=== PATIENT | female | born 1975 | race Caucasian/White ===

== ENCOUNTER 2020-12-21 14:38 | Outpatient (CLI) | payer BC, OTHER, SELFPAY ==
--- NOTE | ~2020-12-21 | US_ITS ---
EXAMINATION: US pelvic complete w TV DATE: 12/21/2020 15:20 INDICATION: Dysfunctional uterine bleeding. TECHNIQUE: Multiple transabdominal and transvaginal sonographic images of the pelvis were obtained. COMPARISON: CT abdomen and pelvis 08/28/11 FINDINGS: TRANSABDOMINAL ULTRASOUND: The uterus measures 8.1 x 4.5 x 5.9 cm. There is no free fluid in the pelvis. TRANSVAGINAL ULTRASOUND: The endometrial complex measures 22 mm in thickness. There is a 2.1 cm hypoechoic mass in the endomet rial complex. There is a 7 mm hypoechoic intramural fibroid. The right ovary measures 1.8 x 1.1 x 1.1 cm. The left ovary measures 2.9 x 1.4 x 1.4 cm. IMPRESSION: 1. Thickened endometrial complex. A 2.1 cm mass in the endometrial complex may be a subserosal fibroi d or polyp. 2. Small intramural fibroid. Reviewed, dictated and finalized at location A. IMPRESSION: 1. Thickened endometrial complex. A 2.1 cm mass in the endometrial complex may be a subserosal fibroid or polyp. 2. Small intramural fibroid.
[2020-12-21 14:55] LABS: Basophils Absolute Auto 0.05 K/mm3 (0.00-0.10); Basophils Percent Auto 0.4 % (0.0-1.0); Eosinophils Absolute Auto 0.06 K/mm3 (0.02-0.50); Eosinophils Percent Auto 0.5 % (1.0-6.0); Hematocrit 45.8 % (35.0-49.0); Hemoglobin 14.8 g/dL (12.0-15.0); Immature Granulocyte Absolute 0.05 K/mm3 (0.00-0.00); Immature Granulocyte Percent A 0.4 % (0.0-0.0); Lymphocytes Absolute Auto 1.45 K/mm3 (1.10-4.50); Lymphocytes Percent Auto 12.9 % (18.0-42.0); Mean Corpuscular HGB Conc 32.3 g/dL (32.0-36.0); Mean Corpuscular Volume 86.6 fL (78.0-102.0); Mean Platelet Volume 10.3 fl (9.2-11.8); Monocytes Absolute Auto 0.49 K/mm3 (0.10-0.90); Monocytes Percent Auto 4.3 % (2.0-11.0); Neutrophils Absolute Auto 9.2 K/mm3 (1.7-7.2); Neutrophils Percent Auto 81.5 % (50.0-70.0); Platelet Count Result 276 K/mm3 (150-420); Red Blood Count 5.29 M/mm3 (4.20-5.40); Red Cell Distribution Width 12.9 % (11.6-14.4); White Blood Count 11.3 K/mm3 (4.8-10.8)
[2020-12-21 15:34] LABS: Alanine Aminotransferase 23 U/L (14-59); Albumin Level 4.2 g/dL (3.4-5.0); Alkaline Phosphatase 102 U/L (46-116); Anion Gap 10 mmol/L (8-16); Aspartate Amino Transferase 12 U/L (15-37); Bilirubin,Total 0.6 mg/dL (0.00-1.00); Blood Urea Nitrogen 11 mg/dL (7-18); Calcium 9.2 mg/dL (8.5-10.1); Carbon Dioxide 26 mmol/L (21-32); Chloride 104 mmol/L (98-108); Estimated Glomerular Filt Rate > 60; Free T4 Free Thyroxine 1.09 ng/dL (0.76-1.46); Glucose 99 mg/dL (70-99); Osmolality Calculated 289 mOsm/kg (285-295); Potassium 4.3 mmol/L (3.5-5.1); Sodium 140 mmol/L (136-145); Thyroid Stimulating Hormone 1.88 uIU/mL (0.36-3.74); Total Protein 7.2 g/dL (6.4-8.2)
[2020-12-24 22:07] LABS: FSH 13.6 mIU/mL (***); Progesterone 0.3 ng/mL (***)
[2020-12-25 09:05] LABS: Testosterone Total 19 ng/dL (2-45)
[2020-12-30 22:01] LABS: Estrogen 234.9 pg/mL
== END 2020-12-21 14:39 | disposition home or self-care (01) ==
PROVIDERS: PCP Internal Medicine; Visit Provider Nurse Practitioner Family
DX: N93.8 Other specified abnormal uterine and vaginal bleeding (principal); R93.89 Abnormal findings on diagnostic imaging of other specified body structures; D25.1 Intramural leiomyoma of uterus
CPT/HCPCS: 36415; 76830; 76856; 80053; 82672; 83001; 83002; 84144; 84403; 84439; 84443; 85025

== ENCOUNTER 2021-01-10 07:57 | Outpatient (CLI) | payer BC, OTHER, SELFPAY ==
[2021-01-10 09:00] LABS: Basophils Absolute Auto 0.1 K/mm3 (0.0-0.1); Basophils Percent Auto 0.8 % (0.2-1.2); Eosinophils Absolute Auto 0.2 K/mm3 (0-0.3); Eosinophils Percent Auto 2.8 % (0-4.4); Hematocrit 46.9 % (37.0-47.0); Hemoglobin 15.2 g/dL (12.0-15.0); Immature Granulocyte Absolute 0.02 K/mm3 (0.00-0.031); Immature Granulocyte Percent A 0.3 % (0-0.5); Lymphocytes Absolute Auto 1.99 K/mm3 (0.9-3.2); Lymphocytes Percent Auto 32.8 % (18.3-44.2); Mean Corpuscular HGB Conc 32.4 g/dl (32-36); Mean Corpuscular Hemoglobin 28.5 pg (26-34); Mean Corpuscular Volume 87.8 fl (80-100); Mean Platelet Volume 10.4 fl (7.4-10.4); Monocytes Absolute Auto 0.5 K/mm3 (0.1-0.6); Monocytes Percent Auto 7.4 % (2.6-8.5); Neutrophils Absolute Auto 3.4 K/mm3 (1.3-6.7); Neutrophils Percent Auto 55.9 % (45.5-73.1); Platelet Count Result 287 k/mm3 (150-375); Red Blood Count 5.34 M/mm3 (4.2-5.4); White Blood Count 6.1 K/mm3 (4.5-10.0)
== END 2021-01-10 07:58 | disposition home or self-care (01) ==
LOC: ANHSURGERY 08:01
PROVIDERS: PCP Internal Medicine; Visit Provider Student in an Organized Health Care Education/Training Program
DX: Z01.812 Encounter for preprocedural laboratory examination (principal); N94.89 Other specified conditions associated with female genital organs and menstrual cycle
CPT/HCPCS: 36415; 85025; 86850; 86900; 86901

== ENCOUNTER → 2021-01-16 03:05 | Outpatient (CLI) | payer BC, OTHER, SELFPAY ==
[2021-01-16 18:14] LABS: SARS-CoV-2 RNA PCR Negative
== END ==
PROVIDERS: PCP Internal Medicine; Visit Provider Student in an Organized Health Care Education/Training Program
DX: Z01.812 Encounter for preprocedural laboratory examination (principal); Z20.822 Contact with and (suspected) exposure to COVID-19
CPT/HCPCS: C9803; U0003; U0005

== ENCOUNTER 2021-01-19 13:12 | Inpatient (IN) | payer BC, OTHER, SELFPAY ==
[2021-01-10 08:07] VITALS: BP 136/80; PULSE 80; RESP 18; TEMP 37.1; O2SAT 98; BMI 34.3
--- NOTE | 2021-01-18 17:54 | PM.IMHP ---
H&P: HPI History of Present Illness Date/Time: 01/18/21 17:54 Patient is a 45yo who presented to gynecology office in 12/2020 for evaluation of abnormal uterine bleeding and endometrial mass. Patient had a pelvic US on 12/21/20 that showed uterus measuring 8.1 x 4.5 x 5.9 cm and a 2.1 cm hypoechoic mass in the endometrial complex. Patient is likely perimenopausal and reported having a menses in 07/2019 and no further menses until 12/18/2020 when she experienced an episode of extremely heavy bleeding requiring her to leave work. Lengthy discussion had with patient regarding further evaluation and possible management options. Patient was initially offered a hysteroscopy/D&C and hysteroscopic resection of mass (probably a fibroid or polyp), however, patient declined. She is extremely worried about recurrence of episode of heavy bleeding and desires definitive management with a hysterectomy. She reports feeling well today without complaints. Chief Complaint: abnormal uterine bleeding endometrial mass Review of Systems Review of Systems: All systems reviewed & are unremarkable except as noted in HPI and below Constitutional: Constitutional: Reports as per HPI, Reports no additional constitutional complaints, Denies chills, Denies fever(s), Denies headache(s) and Denies night sweats Eyes: Eyes: Reports as per HPI and Reports no additional eye complaints ENT: Reports system reviewed and no additional complaints, except as documented, Reports as per HPI, Reports Normal hearing present and Denies headache(s) Cardiovascular: Cardiovascular: Reports as per HPI, Reports no additional cardiovascular complaints, Denies chest pain and Denies dyspnea Respiratory: Respiratory: Reports as per HPI, Reports no additional respiratory complaints, Denies cough and Denies dyspnea Gastrointestinal: Gastrointestinal: Reports as per HPI, Reports no additional gastrointestinal complaints, Denies abdominal pain, Denies change in bowel habits, Denies change in stool character, Denies nausea and Denies vomiting Genitourinary: Genitourinary: Reports no additional female genitourinary complaints, Reports as per HPI, Reports abnormal vaginal bleeding, Denies genital lesions, Denies hot flashes, Denies dyspareunia, Denies pelvic pain, Denies sexual dysfunction, Denies urinary incontinence, Denies vaginal discharge, Denies vaginal dryness and Denies vaginal odor Musculoskeletal: Musculoskeletal: Reports no additional musculoskeletal complaints and Reports as per HPI Integumentary/Breasts: Skin/Breast: Reports system reviewed and no additional complaints, except as docu, Reports as per HPI, Denies breast pain and Denies nipple discharge Neurologic: Reports system reviewed and no additional complaints, except as documented, Reports as per HPI, Reports Normal hearing present and Denies headache(s) Psychiatric: Psychiatric: Reports no additional psychiatric complaints, Reports as per HPI, Denies anxiety and Denies depression Endocrine: Endocrine: Reports no additional endocrine complaints and Reports as per HPI Hematologic/Lymphatic: Hematologic/Lymphatic: Reports no additional hematologic/lymphatic complaints and Reports as per HPI Allergic/Immunologic: Allergic/Immunologic: Reports no additional allergic/immunologic complaints and Reports as per HPI PMFSH Surgical History Surgical History Previous section x 2 Family History Family History Grandparent Uterine cancer Hypertension Social History Social History Smoking status: Never smoker Second hand tobacco smoke exposure: No Alcohol intake: never Substance use: never Substance use type: does not use Gender identity (if verbalized by the patient): Female Spiritual care concerns: No Agree to blood products: Yes Meds Home Medications and
[2021-01-19] VITALS (15 sets, daily range): BP systolic 101–148; BP diastolic 60–92; PULSE 70–110; RESP 11–20; TEMP 36.1–37.1; O2SAT 94–100
--- NOTE | 2021-01-19 08:59 | WPDANESEPPF ---
Anes - Initial Pre Proc Eval Procedure: Operation Date: 01/19/21 09:30 Proposed Procedures p Total Abdominal Hysterectomy With Bilateral Salpingectomy - Malka Alaniz MD Date/Time: 01/19/21 08:59 Surgeon: Malka Alaniz MD Pre Op Diagnosis: abnormal uterine bleeding Patient Data Age: 45 Gender: F Height: 5 ft 4 in Weight: 90.7 kg Last Vital Signs Temp 98.7 F 01/10/21 08:07 Pulse 80 01/10/21 08:07 Resp 18 01/10/21 08:07 BP 136/80 01/10/21 08:07 Pulse Ox 98 01/10/21 08:07 Allergies Allergy/AdvReac Type Severity Reaction Status Date / Time No Known Allergies Allergy Verified 01/19/21 08:50 Home Medications Medication Instructions Recorded Confirmed Type multivitamin 1 tablet PO DAILY 12/27/20 01/19/21 History Patient hx anesthesia problems: none Family hx anesthesia problems: none PMFSH Past Medical History Medical History (Updated 01/19/21 @ 08:55 by Maverick Montes MD) Endometrial mass Surgical History Surgical History Previous section x 2 Family History Family History Grandparent Uterine cancer Hypertension Social History Social History Smoking status: Never smoker Second hand tobacco smoke exposure: No Alcohol intake: never Substance use: never Substance use type: does not use Living arrangements: with family Gender identity (if verbalized by the patient): Female Spiritual care concerns: No Agree to blood products: Yes Anes - Eval Final PreProcedure Day of Procedure 01/19/21 08:59 Patient weight: obese Heart: regular rate and rhythm Lungs: clear to auscultation Airway: Mallampati scale class III Neurological: alert and oriented Last oral intake: >/= 8 hours ASA classification: III Emergent: no Anesthetic plan: proceed Anesthesia type and monitoring: general ETT and standard monitoring Informed Consent: The patient's anesthetic plan and its attendant risks and benefits were discussed with the patient/family/POA. Questions were solicited and answers provided to the satisfaction of the patient/family/POA.
[2021-01-19] MEDS: LACTATED RINGERS 1,000 ML 30 ML IV CONT ×2 (09:00→12:11)
--- NOTE | 2021-01-19 09:02 | WPDHPUPDATE1 ---
History and Physical Update Update Date/Time: 01/19/21 09:02 History and Physical has been reviewed, including an updated exam of the patient. There are NO changes in the patient's condition. Risks, benefits, and alternatives have been discussed and questions answered. Patient agrees to proceed with procedure.
--- NOTE | 2021-01-19 09:04 | PM.PROC ---
Procedure Note - Detailed Date of procedure: 01/19/21 Pre-op diagnosis: abnormal uterine bleeding Endometrial mass Post-op diagnosis: same Procedure performed: Total abdominal hysterectomy Bilateral salpingectomy Cystoscopy Description of procedure: The patient was taken to the operating room where she self transferred to the operating room table. She was placed in the dorsal supine position. General anesthesia was administered and found to be adequate. The patient was prepped and draped in the usual sterile fashion. A Pfannenstiel skin incision was made with a scalpel and carried through to the underlying layer of fascia with the Bovie. The fascia was incised in the midline and the incision was extended laterally with the use of forceps and Bearden scissors. The inferior aspect of the fascial incision was grasped with Paul clamps, elevated, and the underlying rectus muscles were dissected off with Bearden scissors. Attention was turned to the superior aspect of the fascial incision, which in a similar manner was grasped with Apul clamps, elevated, and the underlying rectus muscles also dissected off with Bearden scissors. The rectus muscles were gently retracted and the peritoneum was identified, grasped with Maribel clamps, and entered carefully with Metzenbaum scissors. The bowel was noted just below incision. Underlying structures were palpated with fingers and noted to be free of any adhesions. The peritoneal incision was extended inferiorly to enhance visualization. Significant scar tissue, however, was encountered and dissection was performed using both Bearden and Metzenbaum scissors. The peritoneal cavity was gently stretched, however, with little give. To enhance visualization, the right rectus muscle was transected approx. 0.5cm. Two lap pads were placed laterally beneath the rectus muscle bellies and a self-retaining [place] retractor was placed. Three additional lap pads were placed in the abdomen to displace the bowel cephalad and laterally. A bladder blade was attached to the retractor. The bladder appeared to be densely adherent to the anterior surface of the uterus. The uterus was grasped and guided towards the incision. Pean clamps were placed near the left and right uterine cornua for traction and elevation. The right round ligament was identified, grasped with Nesha clamp, and suture ligated. The round ligament was transected with Bovie. The anterior leaf of the broad ligament was carefully dissected towards the midline to begin creation of bladder flap. Several dense adhesions were grasped and transected carefully with Metzenbaum scissors. The right fallopian tube was identified and grasped with a Sutherland clamp. The LigaSure device was used to transect the mesosalpinx beneath the tube to the level of the cornua. An incision in the posterior leaf of the broad ligament on the right side was created with the Bovie. The LigaSure device was then used to transect the utero-ovarian ligament on the right side. Dissection of the posterior leaf of the broad ligament was performed. Profuse bleeding of the uterine artery on the right side was noted. This bleeding was controlled with the LigaSure device. During this time, with manipulation of the uterus and fallopian tube, the tube detached and was handed off the field to be sent to pathology. Attention was then turned to the patient's left side. The left round ligament was identified, grasped with a Nesha clamp, and suture ligated. The round ligament was transected with the Bovie and the anterior leaf of the broad ligament was carefully dissected towards the midline. The opposing ends were joined in the midline and careful dissection was performed to displace the bladder inferiorly. Dissection was performed with the use of forceps and Metzenbaum scissors as well as a sponge stick. Dissection of the bladder continued until the bladder was deemed to be completely dissected off the anterior cervix. During dissection of the dalia
[2021-01-19] MEDS: SCOPOLAMINE 1.5 MG PATCH TRANSDERM (09:09)
[2021-01-19] MEDS: KETOROLAC 15 MG/ML VIAL (*BKC) IV PUSH (09:09)
[2021-01-19] MEDS: ACETAMINOPHEN 500 MG TABLET 1000 MG PO (09:09)
[2021-01-19] MEDS: ceFAZolin 2 GM/D5W 50 ML 2 GM/50 ML BAG IVPB (09:20)
[2021-01-19] MEDS: fentaNYL CITRATE INJ (*CRX) 100 MCG/2 ML VIAL 25 MCG IV PUSH ×4 (12:32→12:56)
[2021-01-19] MEDS: HYDROmorphone HCL INJ (*CRX) 1 MG/ML SYR 0.25 MG IV PUSH ×4 (13:02→14:16)
[2021-01-19] MEDS: ONDANSETRON INJ 4 MG/2 ML VIAL IV PUSH ×3 (13:45→23:19)
[2021-01-19] MEDS: DEXTROSE 5%/0.45% SOD CHL 1,000 ML 125 ML IV CONT ×2 (14:52→23:17)
[2021-01-19] MEDS: KETOROLAC 30 MG/ML VIAL (*BKC) IV PUSH ×2 (16:59→23:18)
--- NOTE | 2021-01-19 18:48 | PC.NURSE ---
1435-This patient, Tata Briscoe, was admitted to OB 2nd Floor Room 287-00. Patient/family oriented to hospital policies and general routines including ID bracelet, bed and alarms, visiting hours, pain management, procedures, bathroom and other care routines, personal items, smoking policy, room service/diet, and visiting hours. Information on how to activate the Rapid Response Team has been discussed. Patient/Family are encouraged to report perceived risks to care and to ask questions if they do not understand what they are told or what they should do.
[2021-01-19] MEDS: ZOLPIDEM TARTRATE (*CRX) 5 MG TABLET 10 MG PO (21:41)
[2021-01-20 04:00] VITALS: BP 125/75; PULSE 100; RESP 16; TEMP 37.1; O2SAT 97
[2021-01-20 04:04] VITALS: PULSE 100; RESP 16; O2SAT 97
[2021-01-20 05:27] LABS: Basophils Percent Auto 0.2 % (0.2-1.2); Hematocrit 35.9 % (37.0-47.0); Hemoglobin 11.9 g/dL (12.0-15.0); Immature Granulocyte Absolute 0.08 K/mm3 (0.00-0.031); Immature Granulocyte Percent A 0.5 % (0-0.5); Lymphocytes Absolute Auto 1.64 K/mm3 (0.9-3.2); Lymphocytes Percent Auto 10.6 % (18.3-44.2); Mean Corpuscular HGB Conc 33.1 g/dl (32-36); Mean Corpuscular Volume 84.5 fl (80-100); Mean Platelet Volume 11.1 fl (7.4-10.4); Monocytes Absolute Auto 1.2 K/mm3 (0.1-0.6); Neutrophils Absolute Auto 12.4 K/mm3 (1.3-6.7); Neutrophils Percent Auto 80.7 % (45.5-73.1); Platelet Count Result 258 k/mm3 (150-375); Red Blood Count 4.25 M/mm3 (4.2-5.4); Red Cell Distribution Width 12.8 % (11.5-14.5); White Blood Count 15.4 K/mm3 (4.5-10.0)
[2021-01-20] MEDS: KETOROLAC 30 MG/ML VIAL (*BKC) IV PUSH ×2 (05:30→11:22)
[2021-01-20] MEDS: ONDANSETRON INJ 4 MG/2 ML VIAL IV PUSH ×2 (05:31→11:22)
[2021-01-20] MEDS: DEXTROSE 5%/0.45% SOD CHL 1,000 ML 125 ML IV CONT (07:01)
[2021-01-20 07:03] VITALS: BP 124/79; PULSE 90; RESP 16; RESP 18; TEMP 37.2; O2SAT 100
--- NOTE | 2021-01-20 10:01 | WPDANESPN ---
Anes - Prog Note Post-Op Date/Time: 01/20/21 10:01 Cardiovascular status: normal Respiratory status: normal Airway patency: baseline Mental status: baseline Post-Op hydration status: normal Vital Signs: Last Vital Signs Temp 37.2 C 01/20/21 07:03 Pulse 90 01/20/21 07:03 Resp 16 01/20/21 07:03 BP 124/79 01/20/21 07:03 Pulse Ox 100 01/20/21 07:03 Pain Score (VAS): 08/27 I/O: Intake & Output 01/19/21 01/20/21 01/20/21 23:59 07:59 15:59 Intake Total 1290 1250 Output Total 1150 2300 Balance 140 -1050 Laboratory Tests 01/20/21 03:47 01/20/21 03:47 WBC 15.4 H RBC 4.25 Hgb 11.9 L D Hct 35.9 L MCV 84.5 MCH 28.0 MCHC 33.1 RDW 12.8 Plt Count 258 MPV 11.1 H Immature Gran % (Auto) 0.5 Neut % (Auto) 80.7 H Lymph % (Auto) 10.6 L [place] % (Auto) 8.0 Eos % (Auto) 0.0 Baso % (Auto) 0.2 Lymph # (Auto) 1.64 [place] # (Auto) 1.2 H Eos # (Auto) 0.0 Baso # (Auto) 0.0 Abs Immat Gran (auto) 0.08 H Absolute Neuts (auto) 12.4 H Absolute Nucleated RBC 0.0 Nucleated RBC % 0.0 Post-procedural complaints: nausea and vomiting Patient Feedback: Patient satisfied with anesthetic care.
--- NOTE | 2021-01-20 11:16 | PM.GYNPNOP ---
PROCESS DESIGN ENGINEER - A/P Assessment and plan (1) S/P abdominal hysterectomy: Code(s): Z90.710 - Acquired absence of both cervix and uterus Status: Acute Assessment and Plan: POD#1 doing reasonably well will continue IV pain medication and antiemetic this AM if nausea improves, will transition to PO medication this afternoon continue regular diet will continue IV fluids until tolerating PO well encourage ambulation and use of IS Postoperative Procedures: Procedures Operation Date: 01/19/21 09:30 Actual Procedure Side Surgeon p Total Abdominal Hysterectomy With Bilateral Salpingectomy, cystoscopy Bilateral Malka Alaniz MD Time Spent With Patient Time: Total time spent is greater than 50% in coordination of care (as documented) at patient's floor/unit and/or counseling patient: Time with patient: less than 15 minutes PROCESS DESIGN ENGINEER- PN:Subj Post-Op Subjective Date/time seen: 01/20/21 11:16 Patient doing reasonably well. Still reports abdominal pain and nausea. Pain controlled with IV pain medication, however, tends to increase when due for next dose. Denies any vomiting, headache, chest pain, SOB. Tolerating small amount of PO fluid and small amount of toast for breakfast. Ambulating reasonably well. Voiding without difficulty. No flatus yet. Exam Const: General: cooperative and no acute distress GI: Inspection: non-distended GI Palp: Yes Soft to palpation and Yes Tenderness to palpation present (GI) (appropriately tender) Other: incision c/d/i Extrem: Right lower extremity: no edema Left lower extremity: no edema Other: no calf tenderness PROCESS DESIGN ENGINEER - PN: Obj Data Vital Signs Vital Signs: Vital Signs - 24 hr 01/19/21 12:11 01/19/21 12:25 01/19/21 12:40 Temperature 36.2 C L Pulse Rate 91 73 77 Respiratory Rate 11 L 18 14 Blood Pressure 101/63 120/75 121/71 Pulse Oximetry 99 98 96 01/19/21 13:05 01/19/21 13:20 01/19/21 13:35 Temperature 36.1 C L Pulse Rate 72 81 73 Respiratory Rate 15 11 L 13 Blood Pressure 107/60 119/71 118/72 Pulse Oximetry 94 98 96 01/19/21 13:45 01/19/21 14:00 01/19/21 14:15 Temperature Pulse Rate 70 77 72 Respiratory Rate 14 20 17 Blood Pressure 114/80 112/70 119/69 Pulse Oximetry 95 94 94 01/19/21 14:24 01/19/21 14:35 01/19/21 15:00 Temperature 37.1 C Pulse Rate 95 74 74 Respiratory Rate 20 16 16 Blood Pressure 115/70 121/78 Pulse Oximetry 99 96 96 01/19/21 19:30 01/19/21 23:25 01/20/21 04:00 Temperature 37.0 C 36.4 C L 37.1 C Pulse Rate 100 110 H 100 Respiratory Rate 18 16 16 Blood Pressure 148/90 H 139/80 125/75 Pulse Oximetry 98 96 97 01/20/21 04:04 01/20/21 07:03 Temperature 37.2 C Pulse Rate 100 90 Respiratory Rate 16 16 Blood Pressure 124/79 Pulse Oximetry 97 100 Intake/Output Intake/Output: Intake & Output 01/17/21 01/18/21 01/19/21 01/20/21 23:59 23:59 23:59 23:59 Intake Total 3340 1250 Output Total 1840 2300 Balance 1500 -1050 Meds/Results Medications: Active Medications Generic Name Dose Route Start Last Admin Trade Name Freq PRN Reason Stop Dose Admin Docusate Sodium 100 mg 01/19/21 17:00 01/19/21 17:00 Docusate Sodium 100 Mg Capsule PO Not Given BID SHAR Acetaminophen 1,000 mg in 100 mls @ 400 mls/hr 01/19/21 12:45 01/20/21 09:19 Ofirmev 1,000 Mg Ivpb IVPB 01/20/21 12:46 400 mls/hr Q6HR SHAR Administration Dextrose/Sodium Chloride 1,000 mls @ 125 mls/hr 01/19/21 14:27 01/20/21 07:01 Dextrose 5% Sodium Chloride 0.45% IV CONT 125 mls/hr .Q8H SHAR Administration Ketorolac Tromethamine 30 mg 01/19/21 14:27 01/20/21 05:30 Ketorolac 30 Mg/Ml Vial (*Bkc) IV PUSH 01/24/21 14:28 30 mg Q6H PRN Administration Pain Rated 4-6 Ondansetron HCl 4 mg 01/19/21 14:27 01/20/21 05:31 Ondansetron Inj 4 Mg/2 Ml Vial IV PUSH 4 mg Q6H SHAR Administration Simethicone 80 mg 01/19/21 14:27 Simethicone 80 Mg Tab.Chew PO Q2H PRN Gas Zolpidem Tartrate 10
[2021-01-20] MEDS: IBUPROFEN 600 MG TABLET PO (17:13)
[2021-01-20] MEDS: DOCUSATE SODIUM 100 MG CAPSULE PO (17:13)
[2021-01-20 20:00] VITALS: BP 132/63; PULSE 87; RESP 18; TEMP 37; O2SAT 98
[2021-01-20] MEDS: ACETAMINOPHEN 325 MG TABLET 650 MG PO (21:09)
[2021-01-20] MEDS: ZOLPIDEM TARTRATE (*CRX) 5 MG TABLET 10 MG PO (21:09)
[2021-01-21] MEDS: IBUPROFEN 600 MG TABLET PO ×2 (02:40→08:34)
[2021-01-21] MEDS: DOCUSATE SODIUM 100 MG CAPSULE PO (08:34)
[2021-01-21 08:36] VITALS: BP 125/78; PULSE 85; RESP 18; TEMP 36.7
--- NOTE | 2021-01-21 10:40 | PM.GYNPNOP ---
BARREL CUTTER - A/P Assessment and plan (1) S/P abdominal hysterectomy: Code(s): Z90.710 - Acquired absence of both cervix and uterus Status: Acute Assessment and Plan: POD#2 doing well continue routine postoperative care encourage ambulation and use of IS pain well controlled plan is to dc home in stable condition emergency precautions reviewed f/u in office in 2 weeks for postoperative visit or sooner if necessary all questions and concerns addressed Postoperative Procedures: Procedures Operation Date: 01/19/21 09:30 Actual Procedure Side Surgeon p Total Abdominal Hysterectomy With Bilateral Salpingectomy, cystoscopy Bilateral Malka Alaniz MD Time Spent With Patient Time: Total time spent is greater than 50% in coordination of care (as documented) at patient's floor/unit and/or counseling patient: Time with patient: less than 15 minutes BARREL CUTTER- PN:Subj Post-Op Subjective Date/time seen: 01/21/21 10:40 Patient doing well this AM. Was able to sleep well last night. Pain well controlled with medication. Denies any headache, chest pain, SOB, N/V. Tolerating PO diet. Ambulating without difficulty. Voiding well. Passing flatus. Exam Const: General: cooperative, healthy appearing, comfortable and no acute distress GI: Inspection: non-distended GI Palp: Yes Soft to palpation and Yes Tenderness to palpation present (GI) (appropriately tender) Other: incision c/d/i Extrem: Right lower extremity: no edema Left lower extremity: no edema Other: no calf tenderness BARREL CUTTER - PN: Obj Data Vital Signs Vital Signs: Vital Signs - 24 hr 01/20/21 20:00 01/21/21 08:36 Temperature 37.0 C 36.7 C Pulse Rate 87 85 Respiratory Rate 18 18 Blood Pressure 132/63 125/78 Pulse Oximetry 98 Intake/Output Intake/Output: Intake & Output 01/18/21 01/19/21 01/20/21 01/21/21 23:59 23:59 23:59 23:59 Intake Total 3340 2050 Output Total 1840 4700 Balance 1500 -2650 Meds/Results Medications: Active Medications Generic Name Dose Route Start Last Admin Trade Name Freq PRN Reason Stop Dose Admin Acetaminophen 650 mg 01/20/21 18:00 01/20/21 21:09 Acetaminophen 325 Mg Tablet PO 650 mg Q4H PRN Administration Mild Pain (1-3) or Fever Docusate Sodium 100 mg 06/04/21 17:00 01/21/21 08:34 Docusate Sodium 100 Mg Capsule PO 100 mg BID SHAR Administration Ibuprofen 600 mg 01/20/21 11:43 01/21/21 08:34 Ibuprofen 600 Mg Tablet PO 600 mg Q6H PRN Administration Cramping Ketorolac Tromethamine 30 mg 01/19/21 14:27 01/20/21 11:22 Ketorolac 30 Mg/Ml Vial (*Bkc) IV PUSH 01/24/21 14:28 30 mg Q6H PRN Administration Pain Rated 4-6 Ondansetron HCl 4 mg 01/19/21 14:27 01/21/21 08:35 Ondansetron Inj 4 Mg/2 Ml Vial IV PUSH Not Given Q6H SHAR Simethicone 80 mg 01/19/21 14:27 Simethicone 80 Mg Tab.Chew PO Q2H PRN Gas Zolpidem Tartrate 10 mg 01/19/21 18:56 01/20/21 21:09 Zolpidem Tartrate (*Crx) 5 Mg Tablet PO 10 mg HS PRN Administration Insomnia Labs CBC & Chem 7: 01/20/21 03:47
--- NOTE | 2021-01-21 10:43 | PM.DS ---
DS: Admitting Diagnosis Admitting Diagnosis Admitting Diagnosis: AUB Endometrial mass DS: Summary Hospital Course Hospital Course: Uncomplicated Time Spent with Patient Time attestation: Total time spent providing and/or coordinating discharge services: DS: Data Data Completed and Pending Pending studies at discharge: Pending at discharge 01/19/21 11:22 Surgical [PTH] Routine Discharge Plan Discharge Attending physician on discharge: Malka Alaniz Discharging Clinician: Malka Alaniz Anticipated Discharge Date/Time: 01/21/21 10:43 Patient Disposition: Home, Self-Care Activity: may drive after 2 weeks, as tolerated and pelvic rest Diet: regular Discharge Instructions: Remove the Scopolamine patch that was placed behind your left ear in 72 hours or less. Wash your hands after touching. Call office ([phone]) to schedule the following appointments: 1. Postoperative/wound check in 2 weeks. 2. visit in 4-6 weeks. You may take Ibuprofen 600mg every 6 hours as needed for pain. You may also alternate this with Tylenol 1000mg (2 extra strength tabs) every [address] for at least two weeks. Pain medication may make you constipated. It may be helpful to take an [id number] stool softener, such as Colace and/or Senokot, along with the pain medication to help lessen constipation. Call office or go to ED for pain not controlled with medication, headache, chest pain, shortness of breath, fever, chills, persistent nausea or vomiting, severe abdominal pain, heavy vaginal bleeding >2 pads/hour, foul vaginal discharge or odor, any redness near incision, severe pain, pus or drainage from incision site. Patient Instructions: Hysterectomy (DC) Stand Alone Forms: General Discharge Instructions Follow-up/Referrals: Malka Alaniz MD [Physician] - Discharge Medications: Continued multivitamin [Daily Multi-Vitamin] Tablet 1 tablet PO DAILY RF: 0 Date of admission: 01/19/21 13:12 Primary Care Provider: Mil Pulido Admitting Provider: Malka Alaniz Attending physician on admission: Malka Alaniz Condition: Stable
== END 2021-01-21 11:38 | disposition home or self-care (01) | DRG 743 ==
LOC: ANHOB2 14:34
PROVIDERS: Admitting Provider Student in an Organized Health Care Education/Training Program; PCP Internal Medicine; Visit Provider Student in an Organized Health Care Education/Training Program
PROC: 0UT94ZZ Resection of Uterus, Percutaneous Endoscopic Approach (ICD-10-PCS; principal; 2021-01-19 09:30)
DX: N93.8 Other specified abnormal uterine and vaginal bleeding (principal); N94.89 Other specified conditions associated with female genital organs and menstrual cycle
CPT/HCPCS: 36415; 85025; 88307; A9270; J0131; J0690; J1170; J1885; J2250; J2405; J3010; J7030; J7120; Q9968

== ENCOUNTER 2024-04-04 18:46 | Emergency (ER) | payer OTHER, SELFPAY ==
--- NOTE | ~2024-04-04 | XR_ITS ---
XR chest 1V portable DATE: 04/04/2024 19:37 INDICATION: Cough for one week TECHNIQUE: Portable upright AP chest on 04/04/2024 at 1945 hours COMPARISON: None FINDINGS: Normal heart size. No hilar or mediastinal enlargement. No pulmonary infiltrate or consolid ation, pleural effusion or pulmonary vascular congestion or pneumothorax is detected. Included skelet al structures are unremarkable. IMPRESSION: No active cardiopulmonary disease Reviewed, dictated and finalized at location J.
[2024-04-04 19:02] VITALS: BP 142/97; PULSE 107; RESP 18; TEMP 36.7; O2SAT 94
--- NOTE | 2024-04-04 19:26 | ED.GENADULT ---
HPI - General Adult General Chief complaint: Upper Respiratory Infection Stated complaint: sick to stomache Time Seen by Provider: 04/04/24 19:26 Source: patient and family History of Present Illness HPI narrative: 48 years old white female came with dry cough, nasal discharge, postnasal discharge, headache started 1 week ago. Patient was seen at urgent care 1 week ago tested negative for COVID and started on amoxicillin which make her feel terrible. Patient reports intermittent fever, and headache. 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 Related Data Home Medications Medication Instructions Recorded Confirmed multivitamin (Daily Multi-Vitamin 1 tablet PO DAILY 12/27/20 07/23/23 tablet) Allergies Allergy/AdvReac Type Severity Reaction Status Date / Time No Known Allergies Allergy Verified 07/23/23 11:05 Review of Systems Review of Systems: All systems reviewed & are unremarkable except as noted in HPI and below PMFSH Past Medical History Medical History Endometrial mass Surgical History Surgical History History of total abdominal hysterectomy 01/19/21 Previous section x 2 Family History Family History Grandparent Uterine cancer Hypertension Social History Social History Smoking status: Never smoker Second hand tobacco smoke exposure: No Alcohol intake: never Substance use: never Substance use type: does not use Living arrangements: with family Gender identity (if verbalized by the patient): Female Spiritual care concerns: No Agree to blood products: Yes Exam Narrative: General appearance: Well-developed, well-nourished, intermittent coughing Skin: Normal color Head: Normocephalic, nontraumatic Eyes: Clear conjunctiva ENT: Oropharynx normal, ears normal, runny nose Neck: Supple, nontender Chest and respiratory: Airway patent, no respiratory distress, no accessory muscle use Heart: Regular rate/rhythm Abdomen: Soft, nontender, no organomegaly, quiet bowel sounds Vascular: Normal peripheral pulses, normal capillary refill. 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, no gross motor deficit Course Vital Signs Vital signs: Vital Signs Temperature 36.7 C 04/04/24 19:02 Pulse Rate 107 H 04/04/24 19:02 Respiratory Rate 18 04/04/24 19:02 Blood Pressure 142/97 H 04/04/24 19:02 Pulse Oximetry 94 04/04/24 19:02 Oxygen Delivery Room Air 04/04/24 19:02 Temperature 36.7 C 04/04/24 19:02 Pulse Rate 107 H 04/04/24 19:02 Respiratory Rate 18 04/04/24 19:02 Blood Pressure 142/97 H 04/04/24 19:02 Pulse Oximetry 94 04/04/24 19:02 Oxygen Delivery Room Air 04/04/24 19:02 Medical Decision Making MDM Narrative Medical decision making narrative: differential diagnosis upper respiratory viral infection, pneumonia Workup today showed patient tested negative for COVID, RSV and flu, Chest x-ray showed no pneumonia. The recommendation is to stop amoxicillin, and my plan to discharge her on test alone and Atrovent nasal spray for upper respiratory viral infection. Vital Signs Vital Signs: Vital Signs Temperature 36.7 C 04/04/24 19:02 Pulse Rate 107 H 04/04/24 19:02 Respiratory Rate 18 04/04/24 19:02 Blood Pressure 142/97 H 04/04/24 19:02 Pulse Oximetry 94 04/04/24 19:02 Oxygen Delivery Room Air 04/04/24 19:02 Temperature 36.7 C
[2024-04-04 19:58] LABS: Influenza A QL RT-PCR Negative (Negative); Influenza B QL RT-PCR Negative (Negative); RSV RNA, RT-PCR Negative (Negative); SARS-CoV-2 RNA PCR Negative (Negative)
[2024-04-04 20:12] LABS: Strep Group A RT-PCR Not Detected (Negative)
[2024-04-04 20:35] VITALS: BP 138/94; PULSE 98; RESP 20; TEMP 36.9; O2SAT 95
== END 2024-04-04 20:35 | disposition home or self-care (01) ==
PROVIDERS: Emergency Provider Emergency Medicine; PCP Nurse Practitioner Family
DX: J06.9 Acute upper respiratory infection, unspecified (principal); B97.89 Other viral agents as the cause of diseases classified elsewhere; Z20.822 Contact with and (suspected) exposure to COVID-19
CPT/HCPCS: 71045; 87637; 87651; 99283

== ENCOUNTER 2024-05-11 12:29 | Outpatient (CLI) | payer OTHER, SELFPAY ==
--- NOTE | 2024-05-11 13:43 | WPDPFTINT ---
PFT Procedure Performed PFT Procedure Performed Spirometry with Pre/Post Bronchodilator Plethysmography (Lung Vol) Diffusing Cap (DLCO) Flow Vol Loop PFT Interpretation DOS: 05/11/2024 REQUESTING: Dr. Jacob Galeana REASON FOR TESTING: Chronic cough, dyspnea PULMONARY FUNCTION TESTS Results are reliable and reproducible. Repeatability of spirometry FEV1 maneuver pre and post bronchodilator is Grade A. Spirometry: The pre-bronchodilator FEV1 is 2.13 L, 82%. The pre-bronchodilator FVC is 2.74 L, 87%. The FEV1/FVC ratio is 78%. After bronchodilator, the FEV1 is 2.47 L, 95% +16%. The FVC is 3.13 L, 99%, +14%. The FEV1/FVC ratio is 79%. This is a significant response to bronchodilator. Lung volumes: The total lung capacity is 3.85 L, 77%,mildly decreased. The residual volume is 1.11 L, 64%, normal. The RV/TLC is 29%, normal. The FRC is 1.65 L, 71%. Airway resistance is increased. Diffusion: DLCO is 24.5, 97%, normal. The DLCO/VA is 5.63, 139%, increased. Flow volume loop: The flow volume loop is normal. IMPRESSION: This study shows normal spirometry, mild restriction, and normal diffusion. There are no prior studies for comparison. Carmela Olivera MD
== END 2024-05-11 12:30 | disposition home or self-care (01) ==
LOC: CHSCARD 12:30
PROVIDERS: PCP Family Medicine; Visit Provider Family Medicine
DX: R06.00 Dyspnea, unspecified (principal); R06.89 Other abnormalities of breathing
CPT/HCPCS: 94060; 94726; 94729

== ENCOUNTER 2025-06-27 12:05 | Outpatient (CLI) | payer OTHER, SELFPAY ==
--- OUTSIDE RECORDS SUMMARY | 2025-06-27 12:36 | XMS_ITS | Clinical Summary ---
Author Organization [facility] Address [address] [place] [id number] Care Team Providers Care Box Person Name Role Phone Unavailable Primary Care Provider Unavailabl e Social History Tobacco Use Types Packs/Day Years Used Date Smoking Tobacco: Never Assessed Comments Unknown Sex and Gender Information Value Date Recorded Sex Assigned at Not on file Legal Sex Female 2:28 AM CDT Gender Identity Not on file Sexual Orientation Not on file Plan of Treatment Health Maintenance Due Date Last Done Comments Cervical Cancer Screening Pa p Smear (Age 30 to 64) Every 3 Years 1974 Colorectal Cancer Screening Colonoscopy (10 Years) 1974 Annual Physical 1977 Hepatitis C 1992 DTaP, Tdap and Td Vaccines ( 1 - Tdap) 1993 Hepatitis B Vaccines (1 of 3 - 19+ 3-dose series) 1993 Cervical Cancer Screening Pa p with HPV Testing (Age 30 to 64) Every 5 Years 2004 Cervical Cancer Screening with HPV 2004 Mammogram Screening 2014 Pneumococcal Vaccine: 50+ Ye ars (1 of 1 - PCV) 2024 Zoster Vaccines (1 of 2) 2024 COVID-19 Vaccine (1 - 2024-2 6 season) 2025 Influenza Adult (#1) 2025 Hepatitis A Vaccines Aged Out No long er eligible based on patient's age to complete this topic Meningococcal B Vaccine Aged Out No l onger eligible based on patient's age to complete this topic Meningococcal Vaccine Aged Out No iris kevyn eligible based on patient's age to complete this topic RSV Immunizations Under 20 Months Aged Out No longer eligible based on patient's age to complete this topic
== END 2025-06-27 12:06 | disposition home or self-care (01) ==
LOC: CHSLAB 12:07
PROVIDERS: PCP Nurse Practitioner Family; Visit Provider Nurse Practitioner Family
DX: Z12.11 Encounter for screening for malignant neoplasm of colon (principal)
CPT/HCPCS: 36415